=== PATIENT | female | born 1965 | race Asian ===

== ENCOUNTER 2021-02-28 19:03 | Emergency (ER) | payer OTHER ==
[~2021-02-28] VITALS: Ht 167.6 cm; Wt 63.5 kg
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
--- NOTE | 2021-02-28 19:19 | NUR ---
Dr. Davalos at bedside, MSE in progress.
[2021-02-28] MEDS ORDERED: KETOROLAC TROMETHAMINE 60 MG INJ IM ONE ×2 (19:30→19:44)
[2021-02-28] MEDS ORDERED: ACETAMINOPHEN ES 500 MG TABLET PO ONE (19:30)
--- NOTE | 2021-02-28 19:35 | NUR ---
[employer] at bedside talking with patient.
[2021-02-28] MEDS ORDERED: ACETAMINOPHEN ES 500 MG TABLET ONE (19:44)
--- NOTE | 2021-02-28 19:45 | NUR ---
Pt being taken down for CT.
--- NOTE | 2021-02-28 19:58 | NUR ---
Pt brought back from CT, stable condition.
[2021-02-28] MEDS ORDERED: CYCL5TAB PO (20:21)
[2021-02-28] MEDS ORDERED: NAPR-1164 PO (20:21)
[2021-02-28 21:09] VITALS: BP 127/83
--- NOTE | 2021-02-28 21:09 | NUR ---
Patient discharged to home in stable condition, A/O x4, ambulatory. No c/o pain or discomfort, no SOB or labored breathing, afebrile. No visible bruising or discolorations on skin at this time. Ambulatory, steady gait. Instructed to not drive. Written and verbal after care instructions given. Patient verbalizes understanding of instructions. Stressed follow up or return to ER for worsening s/s.
== END 2021-02-28 21:13 | disposition home or self-care (01) ==
LOC: ER 19:05
DX: S06.0X0A Concussion without loss of consciousness, initial encounter (principal); S13.4XXA Sprain of ligaments of cervical spine, initial encounter; S80.01XA Contusion of right knee, initial encounter; V43.52XA Car driver injured in collision with other type car in traffic accident, initial encounter; Y92.414 Local residential or business street as the place of occurrence of the external cause; R40.2362 Coma scale, best motor response, obeys commands, at arrival to emergency department; R40.2142 Coma scale, eyes open, spontaneous, at arrival to emergency department; R40.2252 Coma scale, best verbal response, oriented, at arrival to emergency department
CPT/HCPCS: 70450; 72125; 96372; 99285; J1885; A4663; A9150